=== PATIENT | male | born 1970 | race Caucasian/White ===

== ENCOUNTER → 2021-05-24 | Outpatient (CLI) | payer OTHER ==
--- NOTE | 2021-05-24 09:12 | RAD ---
EXAMINATION: US ABDOMEN COMPLETE CLINICAL HISTORY: Right upper quadrant pain TECHNIQUE: Grayscale sonographic imaging of the abdomen obtained with color Doppler imaging and spect ral Doppler analysis as indicated. COMPARISON: Abdominal ultrasound 07/11/2016 FINDINGS: Pancreas: Poorly visualized secondary to prominent overlying bowel gas. Liver: - Echotexture: Normal, homogeneous. - Echogenicity: Diffusely increased with small areas of patchy hypoechogenicity along the gallblad to fossa, suggestive of steatosis and focal fatty sparing, respectively. - Surface contour: Smooth - Lesions: None Biliary: No intrahepatic biliary duct dilation. - CBD: 4 mm. - Gallbladder: Normal caliber - Contents: No cholelithiasis - Wall: Normal - Other: No pericholecystic fluid. Spleen: - Craniocaudal length: 12.1 cm. - Lesions: None Right Kidney: - Renal length: 13.0 cm - Parenchyma: Normal parenchymal echogenicity. Normal parenchymal thickness. - Collecting system: No hydronephrosis. - Calculus: No echogenic, shadowing calculus. - Lesion: None Left Kidney: - Renal length: 12.7 cm - Parenchyma: Normal parenchymal echogenicity. Normal parenchymal thickness. - Collecting system: No hydronephrosis. - Calculus: No echogenic, shadowing calculus. - Lesion: None IVC: Imaged segments patent. Abdominal Aorta: Imaged segments patent. Ascites: None. IMPRESSION: Findings suggestive of hepatic steatosis as described. Poorly visualized pancreas. Electronically signed by: Ced Prater DO (05/24/2021 9:09 AM) [id number]
== END ==
LOC: US 08:58
PROVIDERS: ATTEND Family Medicine
DX: R10.11 Right upper quadrant pain (principal)
CPT/HCPCS: 76700

== ENCOUNTER → 2021-07-31 | Outpatient (CLI) | payer OTHER ==
--- NOTE | 2021-07-31 10:29 | RAD ---
EXAM: Nuclear hepatobiliary scan. HISTORY: Pain. TECHNIQUE: Following intravenous administration of 5.0 mCi Tc 99m Choletec, anterior images of the ab domen were obtained at five minute intervals through one hour. Subsequently, 8 ounces Ensure was maria elena sted and additional images to assess gallbladder ejection fraction were obtained. FINDINGS: There is prompt radiotracer uptake by the liver. No focal defect is seen. There is normal e xcretion into the biliary tree. The gallbladder is visualized within 5 minutes and there is free flow into the duodenum. The gallbladder ejection fraction is 77 percent. IMPRESSION: Normal radionuclide biliary scan. Electronically signed by: Yelena Garnica MD (07/31/2021 10:27 AM) [facility]
== END ==
LOC: NM 09:13
PROVIDERS: ATTEND Internal Medicine Gastroenterology
DX: R10.11 Right upper quadrant pain (principal)
CPT/HCPCS: 78227; A9537